=== PATIENT | female | born 2000 | race Caucasian/White ===

== ENCOUNTER 2019-01-18 02:56 | Inpatient (IN) ==
[2019-01-18] MEDS ORDERED: LACTATED RINGERS 1,000 ML IV ONE (03:09)
[2019-01-18] MEDS ORDERED: ONDANSETRON 4 MG/2 ML VIAL IV PRN (03:09)
[2019-01-18] MEDS ORDERED: PROMETHAZINE 25 MG/1 ML VIAL IM ONE (03:15)
[2019-01-18] MEDS ORDERED: FAMOTIDINE 20 MG/2 ML VIAL IV ONE (03:15)
[2019-01-18] MEDS ORDERED: CITRIC ACID/SODIUM CITRATE 30 ML UDCUP PO ONE (03:15)
[2019-01-18] MEDS ORDERED: hydrOXYzine HCL 25 MG/1 ML VIAL IM PRN (03:15)
[2019-01-18] MEDS ORDERED: ePHEDrine 50 MG/ML AMP IV PRN (03:15)
[2019-01-18] MEDS ORDERED: diphenhydrAMINE 50 MG/1 ML VIAL IV PRN ×2 (03:15)
[2019-01-18] MEDS ORDERED: NALOXONE 0.4 MG/ML VIAL IV PRN (03:15)
[2019-01-18] MEDS: BUTORPHANOL 2 MG/ML VIAL IV PRN ×2 (03:28→06:28)
[2019-01-18] MEDS ORDERED: fentaNYL 2 MCG/ROPIV 0.2% EPID 100 ML EPIDURAL SCH (03:30)
[2019-01-18 04:14] LABS: Basophils % 0.2 % (0.0-0.8); Eosinophils # 0.1 10*3/uL (0.0-0.87); Eosinophils % 1.2 % (0.00-10.9); Hematocrit 31.5 VOL% (35.7-47.0); Hemoglobin 9.7 GM/DL (12.0-16.0); Immature Granulocytes % 0.6 %; Immature Granulocytes Absolute 0.06 #; Lymphocytes # 2.9 10*3/uL (1.4-4.0); Lymphocytes % 30.3 % (21.3-54.2); Mean Corpuscular HGB Conc 30.8 GM/DL (32-36); Mean Corpuscular Volume 88.5 FL (87-102); Mean Platelet Volume 14.4 FL (9.6-12.0); Monocytes % 9.8 % (1.7-12.7); Neutrophils % 57.9 % (38.7-73.9); Platelet Count 146 T/CUMM (130-400); Red Blood Count 3.56 MC/CUMM (3.8-5.5); Red Cell Distribution Width 14.6 % (9.3-17.3); White Blood Count 9.4 T/CUMM (4-12)
[2019-01-18 04:15] LABS: INR 0.9; PT Patient Result 9.3 SECS; Partial Thromboplastin Time 25.2 SECS (0-40)
[2019-01-18 04:22] LABS: Alanine Aminotransferase 11 U/L (13-56); Albumin 2.7 G/DL (3.4-5.0); Alkaline Phosphatase 240 U/L (45-117); Aspartate Amino Transferase 15 U/L (0-37); Bilirubin,Total < 0.39 MG/DL (0.2-1.0); Blood Urea Nitrogen 9 MG/DL (7-18); Calcium 8.8 MG/DL (8.5-10.1); Glucose 101 MG/DL (74-106); Osmolality,Calculated 279.3 MOS/KG (273-304); Total Protein 6.8 G/DL (6.4-8.3)
[2019-01-18 04:55] LABS: Bilirubin,Direct < 0.100 MG/DL (0.0-0.20); Uric Acid 4.9 MG/DL (2.6-6.0)
[2019-01-18 05:44] LABS: HIV Antigen/Antibody Result Nonreactive (Nonreactive); Hepatitis B Surface Ag Quant < 0.10 Index; Hepatitis B Surface Ag Result Negative (Negative); Rubella Antibody IgG > 500.0 IU/ML
[2019-01-18] MEDS ORDERED: OXYTOCIN/LR 20 UNIT/1,000 ML BAG IV PRN (05:45)
[2019-01-18 05:50] LABS: Anisocytosis 1+
[2019-01-18 05:51] LABS: Platelet Estimate Adequate
[2019-01-18] MEDS: LACTATED RINGERS 1,000 ML IV SCH ×2 (05:57→12:59)
[2019-01-18 09:03] LABS: Apearance,Urine CLEAR (Clear); Bilirubin,Urine Negative (Negative); Blood, Urine Negative (Negative); Glucose,Urine (UA) Negative (Negative); Ketones,Urine Negative (Negative); Nitrite,Urine Negative (Negative); Protein,Urine Negative; RBC,Urine <1 /HPF (0-4); Urine Color Colorless (Yellow); Urine Specific Gravity 1.002 (1.001-1.035); Urine Urobilinogen < 2.0 EU/DL (0.2-1.0); WBC,Urine <1 /HPF (0-6)
[2019-01-18] MEDS ORDERED: miSOPROStol 200 MCG TABLET ONE (14:21)
[2019-01-18] MEDS ORDERED: CARBOPROST TROMETHAMINE 250 MCG/ML AMP IM ONE (14:22)
[2019-01-18] MEDS ORDERED: METHYLERGONOVINE 0.2 MG/1 ML AMP ONE (14:22)
[2019-01-18] MEDS ORDERED: LIDOCAINE 1% 50 ML VIAL ONE (14:24)
[2019-01-18] MEDS ORDERED: LANOLIN 50% CREAM 0.3 OZ TUBE TOP PRN (18:09)
[2019-01-18] MEDS ORDERED: DIPH/TET/ACEL PERT BOOSTER VACCINE 0.5 ML VIAL IM ONE (18:09)
[2019-01-18] MEDS ORDERED: WITCH HAZEL PADS 100/JAR TOP PRN (18:09)
[2019-01-18] MEDS ORDERED: BISACODYL 10 MG SUPP RECTAL PRN (18:09)
[2019-01-18] MEDS ORDERED: RHO(D) IMMUNE GLOBULIN 300 MCG SYRINGE IM ONE (18:09)
[2019-01-18] MEDS ORDERED: HYDROCORTISONE 2.5% RECTAL CREAM 30 GM TUBE TOP PRN (18:09)
[2019-01-18] MEDS ORDERED: MEASLES/MUMPS/RUBELLA VACCINE 0.5 ML VIAL SUBCUT ONE (18:09)
[2019-01-18] MEDS ORDERED: BENZOCAINE 20%/MENTHOL 0.5% SPRAY 56 GM CAN TOP PRN (18:09)
[2019-01-18] MEDS: IBUPROFEN 800 MG TABLET PO SCH (18:15)
[2019-01-18] MEDS ORDERED: OXYTOCIN/LR 20 UNIT/1,000 ML BAG IV ONE (18:45)
[2019-01-18] MEDS: DOCUSATE SODIUM 100 MG CAPSULE PO SCH (20:52)
[2019-01-19 06:32] LABS: Basophils % 0.4 % (0.0-0.8); Eosinophils # 0.2 10*3/uL (0.0-0.87); Eosinophils % 1.4 % (0.00-10.9); Hematocrit 27.8 VOL% (35.7-47.0); Hemoglobin 8.5 GM/DL (12.0-16.0); Immature Granulocytes % 0.6 %; Immature Granulocytes Absolute 0.06 #; Lymphocytes # 2.6 10*3/uL (1.4-4.0); Lymphocytes % 24.9 % (21.3-54.2); Mean Corpuscular HGB Conc 30.6 GM/DL (32-36); Mean Corpuscular Volume 89.1 FL (87-102); Mean Platelet Volume 14.3 FL (9.6-12.0); Monocytes % 7.2 % (1.7-12.7); Neutrophils % 65.5 % (38.7-73.9); Platelet Count 107 T/CUMM (130-400); Red Blood Count 3.12 MC/CUMM (3.8-5.5); Red Cell Distribution Width 14.8 % (9.3-17.3); White Blood Count 10.4 T/CUMM (4-12)
[2019-01-19] MEDS: DOCUSATE SODIUM 100 MG CAPSULE PO SCH ×2 (09:02→20:41)
[2019-01-19] MEDS: IBUPROFEN 800 MG TABLET PO SCH ×2 (09:06→12:58)
[2019-01-19] MEDS: ACETAMINOPHEN 325 MG TABLET PO SCH ×2 (12:58→23:55)
[2019-01-19] MEDS: IBUPROFEN 800 MG TABLET PO PRN (20:40)
[2019-01-20] MEDS: ACETAMINOPHEN 500 MG TABLET PO SCH ×2 (00:02→06:06)
[2019-01-20] MEDS: DOCUSATE SODIUM 100 MG CAPSULE PO SCH (08:21)
[2019-01-20] MEDS: IBUPROFEN 800 MG TABLET PO PRN (08:23)
[2019-01-20 10:50] VITALS: BP 137/82
== END 2019-01-20 13:50 | disposition home or self-care (01) | DRG 560 ==
LOC: N.LDOUT 02:56 → N.LD 02:57 → N.OB 01-19 14:30
PROVIDERS: ADMIT Obstetrics & Gynecology; ATTEND Obstetrics & Gynecology